=== PATIENT | male | born 1975 | race Caucasian/White ===

== ENCOUNTER 2018-11-27 12:57 | Outpatient (CLI) | payer OTHER | END 2018-11-27 13:16 | disposition home or self-care (01) | LOC: LAB 12:57 | DX: M25.511 Pain in right shoulder (principal); E78.2 Mixed hyperlipidemia; Z72.0 Tobacco use; Z13.89 Encounter for screening for other disorder; Z13.220 Encounter for screening for lipoid disorders; Z12.5 Encounter for screening for malignant neoplasm of prostate; E66.8 Other obesity ==

== ENCOUNTER 2025-04-15 07:11 | Outpatient (CLI) | payer OTHER | END 2025-04-15 07:20 | disposition home or self-care (01) | LOC: SONOGRAMA 07:11 | PROVIDERS: ATTEND General Practice | DX: K76.0 Fatty (change of) liver, not elsewhere classified (principal); E78.2 Mixed hyperlipidemia; E04.9 Nontoxic goiter, unspecified; E78.1 Pure hyperglyceridemia; E78.5 Hyperlipidemia, unspecified; Z11.3 Encounter for screening for infections with a predominantly sexual mode of transmission; N39.0 Urinary tract infection, site not specified; Z13.79 Encounter for other screening for genetic and chromosomal anomalies; Z13.1 Encounter for screening for diabetes mellitus; R94.5 Abnormal results of liver function studies; Z12.5 Encounter for screening for malignant neoplasm of prostate; Z12.11 Encounter for screening for malignant neoplasm of colon; Z13.9 Encounter for screening, unspecified; I10 Essential (primary) hypertension; Z20.822 Contact with and (suspected) exposure to COVID-19; A49.3 Mycoplasma infection, unspecified site; J11.1 Influenza due to unidentified influenza virus with other respiratory manifestations; B34.9 Viral infection, unspecified ==